=== PATIENT | female | born 1975 ===

== ENCOUNTER 2016-09-23 14:37 | Emergency (ER) | payer OTHER ==
[~2016-09-23] VITALS: Ht 170.2 cm; Wt 70.0 kg
--- OUTSIDE RECORDS SUMMARY | 2016-09-23 14:42 | XMS REPORT | Summary of Care ---
Author Author Tamanna Brower M.D. Organization Unknown Address [address], [place] [id number] Phone Unavailable Care Team Providers Care Manager Medical Affairs Name Role Phone Tamanna Brower M.D. Unavailable Unavailable Kurt Roberson M.D. Unavailable Unavailable Jessica Pelayo PP Unavailable Unavailable Unavailable Functional Status Functional Status Health Issues Name Dates Details Functional status health issues are not documented Status: Cognitive Status Health Issues Name Dates Details Cognitive status health issues are not documented Status: Problems Name Dates Details High blood cholesterol level (272.0, E78.0) Status: Active Eustachian tube dysfunction (381.81, H69.80) Status: Active Head ache (784.0, R51) Status: Active Depression (311, F32.9) Status: Active Chronic rhinitis (472.0, J31.0) Status: Active Chronic sinusitis (473.9, J32.9) Status: Active Nasal congestion (478.19, R09.81) Status: Active Medications Name Dates Details Flonase 50 MCG/ACT Nasal Suspension Refills: 0 Started 23-May-2014 ActiveEffexor XR 37.5 MG Oral Capsule Extended Release 24 Hour Refills: 0 Started 23-May-2014 ActivePROzac 20 MG Oral Capsule Refills: 0 Started 23-May-2014 ActiveMultivitamins Oral Capsule Refills: 0 Started 23-May-2014 ActiveTylenol Extra Strength 500 MG Oral Tablet Refills: 0 Started 23-May-2014 ActiveBenadryl 25 MG Oral Tablet Refills: 0 Started 23-May-2014 ActiveFluticasone Propionate 50 MCG/ACT Nasal Suspension USE 2 SPRAYS IN EACH NOSTRIL ONCE DAILY Quantity: 1 Refills: 0 Marshall Roberson M.D. Started 23-May-2014 ActiveMucinex D 120-1200 MG Oral Tablet Extended Release 12 Hour Refills: 0 Tamanna Brower M.D. Started 13-Jun-2014 ActiveDymista 137-50 MCG/ACT Nasal Suspension 1 spray each nostril twice a day Quantity: 1 Refills: 6 Tamanna Brower M.D. Started 13-Jun-2014 Ended 16-Jan-2015 Dseaci81 GM Bottle Allergies and Adverse Reactions Name Dates Details Codeine Sulfate TABS Status: Active Sulfa Drugs Status: Active Procedures Procedure Dates Details History of Gallbladder Surgery History of Breast Surgery Reduction Procedure History of Dental Surgery History of Neuroplasty Decompression Median Nerve At Carpal Tunnel Procedures not documented Immunization Name Dates Details Immunizations not documented Family History Father Name Dates Details Family history of allergic rhinitis (V19.6, Z84.89) Status: Active Sister Name Dates Details Family history of Food allergy (693.1, T78.1XXA) Status: Active Social History Smoking StatusUnknown if ever smoked Vital Signs Date Test Result Details 13-Jun-2014 12:53 BP Systolic 122 mm[Hg] Status: BP Diastolic 80 mm[Hg] Status: Heart Rate 78 /min Status: Temperature 98.4 f Status: Weight 162.3125 lb Status: Height 60 in Status: Body Mass Index Calculated 31.7 kg/m2 Status: Body Surface Area Calculated 1.71 m2 Status: Results Date Description Value Details 13-Jun-2014 14:01 CBC w/ Auto Diff 7150 WBC 6.2 K/uL (Better) Range: 4.5-11.0 RBC 4.48 mil/uL (Better) Range: 3.60-5.00 HGB 12.0 g/dL (Better) Range: 12.0-16.0 HCT 37.5 % (Better) Range: 36.0-48.0 MCV 83.7 fL (Better) Range: 80.0-99.0 MCH 26.7 pg (Below low threshold) Range: 27.3-32.5 MCHC 31.8 % (Below low threshold) Range: 32.0-36.0 RDW 13.3 % (Better) Range: 11.6-14.8 PLATELETS 441 K/uL (Above high threshold) Range: 150-400 MPV 6.6 fL (Better) Range: 6.0-11.0 %NEUTRO 52.8 % (Better) Range: 37.0-80.0 %LYMPHS 39.5 % (Better) Range: 13.0-50.0 %MONO 4.1 % (Better) Range: 0.0-12.0 %EOS 1.1 % (Better) Range: 0.0-7.0 %BASO 0.9 % (Better) Range: 0.0-2.5 %NATALYA 1.6 % (Better) Range: 0.0-5.0 NEUTRO 3.3 K/uL (Better) Range: 2.0-6.9 LYMPHS 2.4 K/uL (Better) Range: 0.6-3.4 MONOS 0.3 K/uL (Better) Range: 0.0-0.9 EOS 0.1 K/uL (Better) Range: 0.0-0.7 BASO 0.1 K/uL (Better) Range: 0.0-0.2 17-Jun-2014 11:33 HISS PANEL [id number] Comments: Quest performed at: [employer], [employer], [address] [place] [address], , Electric Transfer Operator: Kvng Garcia M.D.Testing performed at: [employer], [employer], [address] [place] [address], [address], Electric Transfer Operator: Som Portillo D.O., MPHTesting performed at: [employer], [employer] , [facility] [place], [address], Electric Transfer Operator: Jaspreet Cook MD,PhDQuest Collection Date/Time: [id number] Results Received Date/Time: [id number] Reported Date/Time: [id number] performed at: [employer], [employer], [address] [place] [address], , Electric Transfer Operator: Kvng Garcia M.D.Testing performed at: [employer], [employer], [address] [place], [address], Electric Transfer Operator: Som Portillo D.O., MPHTesting performed at: [employer], [employer], [address] [place], [address], Electric Transfer Operator: Jaspreet Cook MD,PhDQuest Collection Date/Time: [id number] Results Received Date/Time: [id number] Reported Date/Time: [id number] performed at: [facility], [facility], [address] [place] [address], , Electric Transfer Operator: Kvng Garcia M.D.Testing performed at: [place], [facility], [address] [place] [address], [place], [address], Electric Transfer Operator: Som Portillo D.O., MPHTesting performed at: [employer], [employer], [address] [place], [address], Electric Transfer Operator: Jaspreet Cook MD,PhDQuest Collection Date/Time : [id number] Results Received Date/Time: [id number] Reported Date/Time: [id number] performed at: [facility], [facility], [address] [place] [address], , Electric Transfer Operator: Kvng Garcia M.D.Testing performed at: [place], [facility], [address] [place] [address], [place], [address], Electric Transfer Operator: Som Portillo D.O., MPHTesting performed at: [employer], [facility] [employer], [address] [place], [address], Electric Transfer Operator: Jaspreet Cook MD,PhDQuest Collection Date/Time : [id number] Results Received Date/Time: [id number] Reported Date/Time: [id number] performed at: [facility], [facility], [address] [place] [address], , Electric Transfer Operator: Kvng Garcia M.D.Testing performed at: [place], [facility], [address] [place], [address], Electric Transfer Operator: Som Portillo D.O., MPHTesting performed at: [employer], [address] [place], [address], Electric Transfer Operator: Jaspreet Cook MD,PhDQuest Collection Date/Time : [id number] Results Received Date/Time: [id number] Reported Date/Time: [id number] performed at: [facility], [address] [place] [address], , Electric Transfer Operator: Kvng Garcia M.D.Testing performed at: [facility] That{img}[facility], [address] [place] [address], [address], Electric Transfer Operator: Som Portillo D.O., MPHTesting performed at: [employer], [address] [place], [address], Electric Transfer Operator: Jaspreet Cook MD,PhDQuest Collection Date/Time : [id number] Results Received Date/Time: [id number] Reported Date/Time: [id number] IMMUNOGLOBULIN G SUBCLASS 1 368 mg/dL (Below low threshold) Range: 382- 929 Comments: [AMD]----- IMMUNOGLOBULIN G SUBCLASS 2 487 mg/dL (Better) Range: 241-700 Comments: [AMD]----- IMMUNOGLOBULIN G SUBCLASS 3 94 mg/dL (Better) Range: 22-178 Comments: [AMD]----- IMMUNOGLOBULIN G SUBCLASS 4 27.5 mg/dL (Better) Range: 4.0-86.0 Comments: [AMD]----- IMMUNOGLOBULIN G, SERUM 963 mg/dL (Better) Range: 694-1618 Comments: [AMD]----- IMMUNOGLOBULIN A 244 mg/dL (Better) Range: 81-463 Comments: [KS]----- IMMUNOGLOBULIN G 1027 mg/dL (Better) Range: 694-1618 Comments: [KS]----- IMMUNOGLOBULIN M 99 mg/dL (Better) Range: 48-271 Comments: [KS]----- IMMUNOGLOBULIN E 23 kU/L (Better) Range: <XK=325 Comments: [KS]----- SEROTYPE 1 (1) <0.3 mcg/mL (Better) Comments: [XE]----- SEROTYPE 3 (3) <0.3 mcg/mL (Better) Comments: [XE]----- SEROTYPE 4 (4) <0.3 mcg/mL (Better) Comments: [XE]----- SEROTYPE 5 (5) <0.3 mcg/mL (Better) Comments: [XE]----- SEROTYPE 8 (8) <0.3 mcg/mL (Better) Comments: [XE]----- SEROTYPE 9 (9N) 0.6 mcg/mL (Better) Comments: [XE]----- SEROTYPE 12 (12F) <0.3 mcg/mL (Better) Comments: [XE]----- SEROTYPE 14 (14) 3.8 mcg/mL (Better) Comments: [XE]----- SEROTYPE 19 (19F) 6.1 mcg/mL (Better) Comments: [XE]----- SEROTYPE 23 (23F) <0.3 mcg/mL (Better) Comments: [XE]----- SEROTYPE 26 (6B) 12.3 mcg/mL (Better) Comments: [XE]----- SEROTYPE 51 (7F) 0.4 mcg/mL (Better) Comments: [XE]----- SEROTYPE 56 (18C) 1.8 mcg/mL (Better) Comments: [XE]----- SEROTYPE 68 (9V) <0.3 mcg/mL (Better) Comments: Note: Serotype designations are Americannomenclature, with Armenian nomenclature inparentheses.Studies from the s using radioimmunoassaysuggested that vaccine-induced S. pneumoniaetype-specific antibody levels of approximately 2.0mcg/mL were protective against invasivepneumococcal disease. Newer methods ( JEFFERSON andmultiplexed immunoassay) incorporating anabsorption step to remove cross-reactiveantibodies yield results that are comparable toeach other, but are lower than those obtained withthe original radioimmunoassay. Rigorous studies ofprotective antibody levels as determined by thenewer methods have not been performed. In additionto antibody quantity, protection also depends onantibody avidity and opsonophagocytic activity.Evaluation of the response to pneumococcalvaccination is best accomplished by comparingpre-vaccination and post-vaccination antibodylevels. A 2- to 4-fold increase in type- specificantibodies measured 4-6 weeks after vaccination isexpected in immunocompetent adults. The number ofserotypes for which a 2- to 4-fold increase isobserved varies greatly among individuals; aconsensus panel has suggested that individualsolder than 5 years should respond to at leastapproximately 70% of pneumococcal serotypes.Adults >65 years old may exhibit a smaller(<2-fold) increase in type-specific antibodylevels.This test was developed and its performancecharacteristics have been determined by [employer]. Performance characteristics refer tothe analytical performance of the test.[XE]----- TETANUS ANTITOXOID 3.09 IU/mL (Better) Comments: REFERENCE RANGE: > or= 0.50 IU/mL (Post-Vaccination)INTERPRETIVE CRITERIA: <0.05 IU/mL Nonprotective Antibody Level 0.05 - 0.49 IU/mL Indeterminate for Protective Antibody > or=0.50 IU/mL Protective Antibody LevelLevels greater than or equal to 0.50 IU/mL aregenerally considered protective, whereas levelsless than 0.05 IU/mL indicate a lack of protectiveantibody. Levels between 0.05 and 0.49 IU/mL areindeterminate for the presence of protectiveantibody and may indicate a need for furtherimmunization to tetanus toxoid.This test was developed and its performancecharacteristics have been determined by [employer]. Performance characteristics refer tothe analytical performance of the test.[XE]- ---- DIPHTHERIA ANTITOXOID 1.48 IU/mL (Better) Comments: REFERENCE RANGE: > or=0.01 IU/mL (Post-Vaccination)INTERPRETIVE CRITERIA: <0.01 IU/mL Nonprotective Antibody Level > or=0.01 IU/mL Protective Antibody LevelThis test was developed and its performancecharacteristics have been determined by [employer]. Performance characteristics refer tothe analytical performance of the test.[XE]----- Plan of Care Planned Observations Name Dates Details Planned Goals not documented Goal Planned Encounters Appointment; Provider: Tamanna Brower On 06-Sep-2014 11:15 Instructions Instructions not documented Encounters Appointment; Tamanna Brower Encounter Diagnosis: Problem not documented On 13-Jun-2014 13:00 Appointment; Marshall Roberson Encounter Diagnosis: Problem not documented On 23-May-2014 14:15
[2016-09-23] MEDS ORDERED: LIDOCAINE 2% (XYLOCAINE) 20 ML VIAL INJ ONE ×2 (14:55→14:57)
[2016-09-23] MEDS ORDERED: TETANUS, DIPTHERIA, PERTUSSIS (ADACELL) VACCINE 0.5 ML VIAL IM ONE (15:10)
[2016-09-23] MEDS ORDERED: ceFAZolin 1,000 MG in SODIUM CHLORIDE VIAL (PF) 10 ML IV ONE (16:05)
[2016-09-23] MEDS ORDERED: HYDROmorphone 2 MG/ML (DILAUDID) 1 ML SYRINGE IV ONE (16:05)
[2016-09-23] MEDS ORDERED: ONDANSETRON 2 MG/ML (Z0FRAN) 2 ML VIAL IV ONE (16:05)
[2016-09-23] MEDS ORDERED: OXYC1TAB87 PO (16:23)
[2016-09-23] MEDS ORDERED: CEPH-331 PO ×2 (16:23→16:54)
--- NOTE | 2016-09-23 16:32 | NUR ---
FATHER AMANDEEP CALLED TO LET HIM KNOW OF PT PRESENCE HERE IN ED. CL
--- NOTE | 2016-09-23 16:55 | Progress Note (E) ---
Progress Note Avulsed right 4th fingertip reattached as a full thickness skin graft. Full note dictated #[id number] DILCIA BARRERA MD Sep 23, 2016 16:54
--- NOTE | 2016-09-23 17:00 | Diagnostic Imaging Report ---
INDICATION: Amputation injury. FINDINGS: There is soft tissue amputation of the tip of the fourth digit. There is a fracture of the tuft with no significant displacement noted. IMPRESSION: Soft tissue amputation with a tuft fracture of the distal phalanx of the fourth digit. Dictated by: Dictated on workstation # [id number]
[2016-09-23 20:30] VITALS: BP 137/78
--- NOTE | 2016-09-24 08:21 | EMERGENCY ROOM REPORT ---
DATE OF REPORT: FINDINGS: This patient was using a pizza dough roller at [facility] at approximately 2:45 pm today, when her right ring finger got caught at the roller, which avulsed the fingertip. The patient and fingertip were immediately transported to the hospital less than 5 minutes away. The patient is unsure of her last tetanus immunization and this is given in the ER at this time. PAST MEDICAL HISTORY: Significant only for anxiety and depression. PHYSICAL EXAM GENERAL: Reveals a well-developed well-nourished female who is crying. VITAL SIGNS: As noted on the ER chart. EXTREMITIES: Exam of the right ring finger reveals a 1.5 x 1.5 avulsed fingertip segment, which included the fingernail. The distal finger otherwise appears intact. The patient has normal flexion and extension of the finger. Avulsed fingertip is intact, and includes the fingernail. It had been cleansed with saline, and placed in a gauze on ice. The ER physician has already anesthetized the finger, so sensory exam is not feasible at this time. He also debrided the finger. The patient has received 1 gm of cefazolin IV. The tuft of the finger appears intact. I discussed with the patient options, natures, risks and rewards, recommending re-application of the fingertip as a full thickness skin graft. If this does not take, then the finger would heal by secondary intention, which would be the other option. She understands and wishes to proceed with reimplantation of the tip. PROCEDURE NOTE: The finger was previously anesthetized. The intact skin is prepped with betadine and draped in sterile fashion. The fingertip and the 4th finger are irrigated with saline. The avulsed fingertip is defatted and reattached to the finger using interrupted 5-0 nylon suture. Xeroform dressing and compression dressings are applied to the finger along with a splint. The patient tolerated the procedure well. RECOMMENDATIONS: Keep the right hand above the level of the heart and avoid using the hand (the patient is right handed). Return to the office in 2 days for follow up evaluation. She is to otherwise keep the dressing intact and keep the hand dry. Warning signs of fever, chills were discussed with the patient. The ER physician is providing prescription for pain medication.
== END 2016-09-23 17:18 | disposition home or self-care (01) ==
LOC: ED 14:42
DX: S68.624A Partial traumatic transphalangeal amputation of right ring finger, initial encounter (principal); W23.0XXA Caught, crushed, jammed, or pinched between moving objects, initial encounter; Y93.G1 Activity, food preparation and clean up; Y92.89 Other specified places as the place of occurrence of the external cause; Y99.0 Civilian activity done for income or pay
CPT/HCPCS: 12001; 73140; 90471; 90715; 96365; 96375; 99283; J0690; J1170; J2001; J2405; J7050